=== PATIENT | female | born 1950 | race Caucasian/White ===

== ENCOUNTER 2018-01-02 07:39 | Emergency (ER) | payer MEDICARE, BC ==
[2018-01-02 08:21] LABS: #Basophils 0.1 thou/uL (0.0-0.2); #Eosinphils 0.2 thou/uL (0.0-0.7); #Lymphocytes 0.8 thou/uL (1.20-3.40); #Monocytes 0.3 thou/uL (0.11-0.59); #Neutrophils 2.7 thou/uL (1.40-6.50); %Basophils 1.9 % (0.0-1.0); %Eosinophils 4.7 % (0.0-10.0); %Lymphocytes 20.2 % (21.0-51.0); %Monocytes 7.7 % (0.0-10.0); %Neutrophils 65.5 % (42.0-75.0); Hemoglobin 11.7 g/dL (12.0-16.0); Mean Corpuscular HGB CONC 32.6 g/dL (32.0-36.0); Mean Corpuscular Hemoglobin 30.8 pg (27.0-31.0); Mean Corpuscular Volume 94.4 fL (78.0-98.0); Mean Platelet Volume 8.5 fL (7.4-10.4); Platelet Count 136 thou/uL (130-400); RBC Distribution Width 11.9 % (11.5-14.5); Red Blood Cell (RBC) Count 3.78 mill/uL (4.20-5.40); White Blood Cell (WBC) Count 4.1 thou/uL (4.8-10.8)
[2018-01-02 08:41] LABS: ALT (SGPT) 21 U/L (8-55); AST (SGOT) 30 U/L (5-34); Albumin 3.5 g/dL (3.4-4.8); Alkaline Phosphatase 102 U/L (40-150); Anion Gap 11 mmol/L (10-20); BUN (Urea Nitrogen) 11 mg/dL (9.8-20.1); Bilirubin, Total 0.3 mg/dL (0.2-1.2); Calc. Creatinine Clearance 0 mL/min (70-130); Calcium 8.9 mg/dL (7.8-10.44); Carbon Dioxide 30 mmol/L (23-31); Chloride 100 mmol/L (98-107); Estimated GFR-MDRD 80; Globulin 2.8 g/dL (2.4-3.5); Glucose 90 mg/dL (80-115); Potassium 3.9 mmol/L (3.5-5.1); Protein, Total 6.3 g/dL (6.0-8.3); Sodium 137 mmol/L (136-145)
[2018-01-02] MEDS ORDERED: Azithromycin 500 MG VIAL ONE (09:11)
[2018-01-02] MEDS ORDERED: Sodium Chloride 0.9% 250 ML 250 ML ONE (09:12)
--- NOTE | 2018-01-02 10:49 | RAD ---
AP SITTING PORTABLE CHEST 1 VIEW: HISTORY: A 67-year-old female with a history of cough and congestion. FINDINGS: Increased linear and interstitial markings noted bilaterally, particularly in the right perihilar and infrahilar region with some associated moderate right hemidiaphragm elevation. There is no evidence for confluent lobar pneumonia. No significant pleural effusion. IMPRESSION: Moderate right hemidiaphragm elevation with linear parenchymal changes in the right mid and lower yina g zone and infrahilar region, possibly subsegmental atelectasis of chronic change versus very mild in terstitial pneumonia without evidence for confluent lobar pneumonia. No significant acute process in the left lung. Atherosclerosis of the aorta with some ectasia. POS: [facility]
== END 2018-01-02 12:00 | disposition home or self-care (01) ==
LOC: NAV ERS 07:39
DX: J20.9 Acute bronchitis, unspecified (principal); J06.9 Acute upper respiratory infection, unspecified; J45.909 Unspecified asthma, uncomplicated; F32.9 Major depressive disorder, single episode, unspecified; Z79.899 Other long term (current) drug therapy
CPT/HCPCS: 36415; 71045; 80053; 85025; 87804; 94760; 96365; J0456; J7050